=== PATIENT | female | born 1970 | race Caucasian/White ===

== ENCOUNTER 2019-06-09 15:02 | Outpatient (CLI) | payer SELFPAY ==
--- NOTE | 2019-06-09 15:11 | XRR_ITS ---
PROCEDURE INFORMATION: Exam: XR Cervical Spine, 2 or 3 Views Exam date and time: 06/09/2019 3:25 PM Age: 49 years old Clinical indication: Screening exam; 6 week post surgery; Prior surgery; Surgery date: 1-6 months; Additional info: S/P cervical spinal fusion TECHNIQUE: Imaging protocol: XR of the cervical spine, 2 or 3 views. COMPARISON: CR Cervical Spine AP/Lat* [id number] 05/05/2019 2:08 PM FINDINGS: Vertebrae: Normal. No acute fracture. There is reversal of cervical lordosis send a stable since prior. Postsurgical hardware is seen with metallic plate and screws anterior to C4 and C5. The bones otherwise show unremarkable alignment. Soft tissues: Unremarkable XR/XR cervical spine 3V* [id number] IMPRESSION: Negative for acute abnormality. Postsurgical hardware cervical spine C4-C5 Otherwise Unremarkable radiograph.
== END 2019-06-09 15:03 | disposition home or self-care (01) ==
LOC: RAD 15:05
PROVIDERS: Family Provider Nurse Practitioner Family; PCP Nurse Practitioner Family; Visit Provider Licensed Practical Nurse
DX: Z98.1 Arthrodesis status (principal)
CPT/HCPCS: 72040

== ENCOUNTER → 2020-04-17 11:51 | Outpatient (BNVA) | payer SELFPAY | PROVIDERS: Family Provider Nurse Practitioner Family; PCP Nurse Practitioner Family; Visit Provider Nurse Practitioner Family | DX: Z20.828 Contact with and (suspected) exposure to other viral communicable diseases (principal); J06.9 Acute upper respiratory infection, unspecified | CPT/HCPCS: 87635 ==

== ENCOUNTER → 2020-05-31 10:54 | Outpatient (BNVA) | payer SELFPAY | PROVIDERS: Family Provider Nurse Practitioner Family; PCP Nurse Practitioner Family; Visit Provider Nurse Practitioner Family | DX: R05 Cough (principal); R06.02 Shortness of breath; J40 Bronchitis, not specified as acute or chronic | CPT/HCPCS: 71046 ==